=== PATIENT | male | born 1995 | race Caucasian/White ===

== ENCOUNTER 2019-10-31 11:43 | Emergency (ER) | payer OTHER, SELFPAY ==
--- NOTE | ~2019-10-31 | XR_ITS ---
XR chest 1V portable DATE: 10/31/2019 12:01 INDICATION: Chest pain TECHNIQUE: Portable upright AP chest on 10/31/2019 at 1156 hours COMPARISON: 08/26/2019 PA and lateral chest FINDINGS: Normal heart size. No hilar or mediastinal enlargement. No pulmonary infiltrate or consolid ation, pleural effusion or pulmonary vascular congestion or pneumothorax. IMPRESSION: No active cardiopulmonary disease Reviewed, dictated and finalized at location B.
[2019-10-31 11:40] VITALS: PULSE 90; RESP 16; O2SAT 98
--- NOTE | 2019-10-31 11:43 | ECG_ITS ---
Measurements Intervals [place] Rate: 81 P: 23 SC: 140 QRS: -22 QRSD: 90 T: 18 QT: 351 QTc: 408 Interpretive Statements SINUS RHYTHM INCOMPLETE RIGHT BUNDLE BRANCH BLOCK VOLTAGE CRITERIA FOR LVH BORDERLINE ECG Electronically Signed On 10-31-2019 11:49:48 CDT by Arun Watson D.O.
[2019-10-31 11:59] LABS: Basophils Absolute Auto 0.1 K/mm3 (0.0-0.1); Basophils Percent Auto 0.5 % (0.2-1.2); Eosinophils Percent Auto 0.4 % (0-4.4); Hematocrit 49.8 % (42.0-52.0); Hemoglobin 16.5 g/dL (14.0-18.0); Immature Granulocyte Absolute 0.03 K/mm3 (0.00-0.031); Immature Granulocyte Percent A 0.3 % (0-0.5); Lymphocytes Absolute Auto 0.96 K/mm3 (0.9-3.2); Lymphocytes Percent Auto 9.9 % (18.3-44.2); Mean Corpuscular HGB Conc 33.1 g/dl (32-36); Mean Corpuscular Hemoglobin 30.6 pg (26-34); Mean Corpuscular Volume 92.4 fl (80-100); Mean Platelet Volume 9.7 fl (7.4-10.4); Monocytes Absolute Auto 0.5 K/mm3 (0.1-0.6); Monocytes Percent Auto 5.2 % (2.6-8.5); Neutrophils Absolute Auto 8.1 K/mm3 (1.3-6.7); Neutrophils Percent Auto 83.7 % (45.5-73.1); Platelet Count Result 256 k/mm3 (150-375); Red Blood Count 5.39 M/mm3 (4.6-6.20); Red Cell Distribution Width 14.5 % (11.5-14.5); White Blood Count 9.7 K/mm3 (4.5-10.0)
[2019-10-31 12:09] LABS: Partial Thromboplastin Time 26.6 SECONDS (22.3-36.8); Prothrombin Time 13.2 Seconds (11.1-14.7)
[2019-10-31 12:11] LABS: Blood Urea Nitrogen 14 mg/dL (9-20); Calcium 9.4 mg/dL (8.4-10.2); Carbon Dioxide 21 mmol/L (22-30); Chloride 101 mmol/L (98-107); Estimated CRCL calculation 132 ml/min; Estimated Glomerular Filt Rate > 60; Glucose 97 mg/dL (75-110); Potassium 4.3 mmol/L (3.4-5.0); Sodium 137 mmol/L (137-145)
[2019-10-31 12:12] VITALS: BP 139/81; PULSE 80; RESP 13; TEMP 37.2; O2SAT 97
[2019-10-31 12:22] LABS: Troponin I < 0.012 ng/mL (0.000-0.034)
--- NOTE | 2019-10-31 12:37 | ED.WEAKNESS ---
HPI - Weakness General Chief complaint: Chest Pain Stated complaint: cp Time Seen by Provider: 10/31/19 12:19 Source: patient and RN notes reviewed Mode of arrival: EMS Limitations: no limitations History of Present Illness HPI Narrative: Pt is a 23 y/o male who presents to the ED via EMS with c/o generalized weakness starting yesterday. He notes that he has been under a lot of stress recently, stating that he has been living in a hotel for the past week due to family complications. Pt notes that he began feeling generally weak, and developed nausea and vomiting yesterday. He states that he hasn't been able to keep anything down since yesterday due to the vomiting. Pt notes that he woke up this morning with chest pain. According to the nurse, the pt also developed SOB this morning. The nurse states that the pt received ASA 324 mg and 1 mg of NTG while in route to the ED. Pt currently denies any fever, chills, or diarrhea. He notes that he hasn't had any recent contact with sick individuals, and states that he hasn't had any recent travel. MD Complaint: generalized weakness Onset (ago): day(s) (1) Location: generalized Associated symptoms: chest pain, nausea/vomiting and shortness of breath (per nurse) Related Data Allergies Allergy/AdvReac Type Severity Reaction Status Date / Time amoxicillin Allergy Unknown Verified 09/05/14 13:58 bee venom protein (honey bee) Allergy Unknown Verified 10/31/19 12:48 [bees] Penicillins Allergy Unknown Rash Verified 05/20/18 16:14 Review of Systems Review of Systems: All systems reviewed & are unremarkable except as noted in HPI and below Constitutional: Constitutional: Denies chills, Denies fever(s) and Reports weakness (generalized) Cardiovascular: Cardiovascular: Reports chest pain Respiratory: Respiratory: Reports dyspnea (per nurse) Gastrointestinal: Gastrointestinal: Denies diarrhea, Reports nausea and Reports vomiting PMFSH Past Medical History Medical History Fingers fractured Fracture, ribs Liver laceration Pelvic fracture Vertebral fracture Surgical History Surgical History S/P tube myringotomy Family History Family History (Updated 03/30/14 @ 07:13 by DOCTOR UNKNOWN) Father Family history of heart disease in male family member before age 55 Social History Social History Smoking status: Light tobacco smoker Second hand tobacco smoke exposure: Yes Alcohol intake: current Substance use: never Gender identity (if verbalized by the patient): Male Exam Narrative: Exam Narrative: General appearance: Well-developed, well-nourished Skin: Normal color Head: Normocephalic, nontraumatic Eyes: Clear conjunctiva ENT: Oropharynx normal, ears normal, nose normal Neck: Supple, nontender Chest and respiratory: Airway patent, no respiratory distress, no accessory muscle use Heart: Regular rate/rhythm Abdomen: Soft, nontender, no organomegaly, quiet bowel sounds Vascular: Normal peripheral pulses, normal capillary refill. Musculoskeletal: Normal range of motion, nontender back Neurologic: Alert and oriented ?3, INSPECTOR PLUG SEAM is normal as tested, no gross motor deficit Course Course Emergency Course: Improving Vital Signs Vital signs: Vital Signs Pulse Rate 90 10/31/19 11:40 Respiratory Rate 16 10/31/19 11:40 Pulse Oximetry 98 10/31/19 11:40 Temperature 37.2 C 10/31/19 12:12 Pulse Rate 80 10/31/19 12:12 Respiratory Rate 13 10/31/19 12:12 Blood Pressure 139/81 10/31/19 12:12 Pulse Oximetry 97 10/31/19 12:12
[2019-10-31] MEDS: SODIUM CHLORIDE 0.9% IV 1,000 ML 999 ML IV CONT (12:46)
[2019-10-31 13:32] VITALS: BP 134/90; PULSE 85; O2SAT 97
== END 2019-10-31 13:34 | disposition home or self-care (01) ==
PROVIDERS: Emergency Medicine; Emergency Provider Emergency Medicine
DX: R11.2 Nausea with vomiting, unspecified (principal)
CPT/HCPCS: 36415; 71045; 80048; 84484; 85025; 85610; 85730; 93005; 96361; 96374; 99284; J1200; J7030

== ENCOUNTER 2020-09-21 17:59 | Inpatient (IN) | payer OTHER, SELFPAY ==
[2020-09-21] VITALS (27 sets, daily range): BP systolic 103–151; BP diastolic 61–79; PULSE 94–133; RESP 10–36; TEMP 36.6; O2SAT 88–98
--- NOTE | ~2020-09-21 | XR_ITS ---
EXAMINATION: XR chest 1V portable EXAM DATE: 09/21/2020 19:10 INDICATION: Transient alteration of awareness. TECHNIQUE: Portable AP frontal chest x-ray was obtained. Comparison is made to prior examination from 10/31/2019. FINDINGS: Small right upper lobe granuloma. The lungs are otherwise clear. There are no pleural effu sions. The cardiomediastinal silhouette is within normal limits. There is no pneumothorax suspected . The bones and soft tissues are unremarkable. IMPRESSION: No acute cardiopulmonary findings. Reviewed, dictated and finalized at location A. OGRAPHIC RETOUCHER APPRENTICE
--- NOTE | 2020-09-21 18:10 | PC.NURSE ---
[place] poison control contacted. states seroquel immediate is not toxic until pt takes 1,000 mg. peak is 1.5 hours. if pt took extended release then 2,000 mg required for toxic dose and peak is 6 hours. pt may become drowsy, ataxic and have slurred speech. if pt took more than stated could see coma, delirium, prolonged QT. Ativan is suggested med since pt is agitated. will be following pt.
--- NOTE | 2020-09-21 18:11 | PC.NURSE ---
patient brought to this ED via EMS after intentional overdose with seroquel as reported by patient's mother. see initial notes. PD still in room. attempting to treat patient and get vitals. patient is disoriented and combative. handcuffs currently on with PD present.
--- NOTE | 2020-09-21 18:14 | ECG_ITS ---
Measurements Intervals [place] Rate: 100 P: 52 MO: 156 QRS: -32 QRSD: 106 T: 24 QT: 338 QTc: 437 Interpretive Statements SINUS TACHYCARDIA LEFT AXIS DEVIATION VOLTAGE CRITERIA FOR LVH MINIMAL Q WAVES- HIGH LATERAL LEADS BORDERLINE ECG Electronically Signed On 09-22-2020 7:58:04 [employer] POWERHOUSE by Arun Watson D.O.
--- NOTE | 2020-09-21 18:18 | ED.OVERDOSE ---
HPI - Overdose General Chief Complaint: Overdose Stated Complaint: overdose Time Seen by Provider: 09/21/20 18:05 Source: EMS Mode of arrival: EMS Limitations: clinical condition History of Present Illness HPI Narrative: Patient is 24 years old white male brought to the emergency room by ambulance. The EMT is telling me that patient's mother called them because patient had a bottle of Seroquel came out of the bathroom with empty bottle, told his mom that he flushed it in the toilet, mother did not hear any flushing sound. Patient came by ambulance, agitated, insisted to leave. Patient is telling me that he does not remember if he took any pills or not. If he took extra pills that means he would like to kill himself because he is tired of life. Related Data Allergies Allergy/AdvReac Type Severity Reaction Status Date / Time amoxicillin Allergy Unknown Verified 09/05/14 13:58 bee venom protein (honey bee) Allergy Unknown Verified 10/31/19 12:48 [bees] Penicillins Allergy Unknown Rash Verified 05/20/18 16:14 Review of Systems Review of Systems: Narrative: CONSTITUTIONAL: Denies fever, chills, or sweats. EYES: Denies visual changes, redness, or discharge. ENT: Denies rhinorrhea, congestion, sore throat, or otalgia. CARDIOVASCULAR: Denies chest pain, palpitations, or edema. RESPIRATORY: Denies cough or dyspnea. GASTROINTESTINAL: Denies abdominal pain, nausea, vomiting, or diarrhea. GENITOURINARY: Denies dysuria or hematuria. SKIN: Denies rash or itching. MUSCULOSKELETAL: Denies back pain, joint pain, or myalgia. NEUROLOGIC: Denies headache, numbness, or weakness. PSYCHIATRIC: Denies anxiety or depression. [facility] Past Medical History Medical History (Updated 09/21/20 @ 21:13 by Oralia Villa MD) Fingers fractured Fracture, ribs Liver laceration Pelvic fracture Vertebral fracture Surgical History Surgical History S/P tube myringotomy Family History Family History Father Family history of heart disease in male family member before age 55 Social History Social History Smoking status: Light tobacco smoker Second hand tobacco smoke exposure: Yes Alcohol intake: current Substance use: never Gender identity (if verbalized by the patient): Male Exam Narrative: Exam Narrative: General appearance: Well-developed, well-nourished, agitated, combative Skin: Normal color Head: Normocephalic, nontraumatic Eyes: Clear conjunctiva ENT: Oropharynx normal, ears normal, nose normal Neck: Supple, nontender Chest and respiratory: Airway patent, no respiratory distress, no accessory muscle use Heart: Regular rate/rhythm Abdomen: Soft, nontender, no organomegaly, quiet bowel sounds Vascular: Normal peripheral pulses, normal capillary refill. Musculoskeletal: Normal range of motion, nontender back Neurologic: Alert and oriented ?3, BULB PLANTER is normal as tested, no gross motor deficit Course Course Emergency Course: Improving Reevaluation(s) Reevaluation #1: Currently patient feeling much better, patient is awake, alert and oriented x4, telling me that he does not remember exactly what happened, does not remember if he took overdose or not but he remembered that he had alcohol on board today Date: 09/21/20 Time: 21:16 MDM - Overdose MDM Narrative Medical decision making narrative: Intentional drug overdose, alcohol intoxication are my concern. Poison control contacted, IV fluid normal saline x2 L, labs, urine drug screen, EKG, chest x-ray, alcohol level ordered. Further plan to follow D
--- NOTE | 2020-09-21 18:30 | PC.NURSE ---
PD no longer present. handcuffs removed prior to their departure. patient continued to escalate his behavior. this RN and global technical writer in room when patient removed all monitors and jumped off stretcher. patient did leave his room walking towards exit. all staff and provider aware. security present. patient pulled out his IV and threw on floor. bleeding from left hand. patient seen leaving ED exit but then quickly returning. patient's mother has been present in room.
--- NOTE | 2020-09-21 18:33 | PCRCNOTE ---
PT. COMBATIVE, TRIED LEAVING AMA. PT. CURRENTLY IN 4 POINT HARD RESTRAINTS. ABG UNABLE TO BE DRAWN AT THIS TIME. DR. KATIA TOLLIVER.
[2020-09-21] MEDS: LORazepam INJ (*CRX) 2 MG/ML VIAL IV PUSH (18:40)
[2020-09-21] MEDS: SODIUM CHLORIDE 0.9% IV 1,000 ML 999 ML IV CONT ×2 (18:52→21:40)
[2020-09-21 18:55] LABS: Basophils Percent Auto 0.2 % (0.2-1.2); Eosinophils Absolute Auto 0.1 K/mm3 (0-0.3); Eosinophils Percent Auto 1.4 % (0-4.4); Hematocrit 45.4 % (42.0-52.0); Hemoglobin 15.3 g/dL (14.0-18.0); Immature Granulocyte Absolute 0.03 K/mm3 (0.00-0.031); Immature Granulocyte Percent A 0.3 % (0-0.5); Lymphocytes Absolute Auto 2.03 K/mm3 (0.9-3.2); Lymphocytes Percent Auto 23.5 % (18.3-44.2); Mean Corpuscular HGB Conc 33.7 g/dl (32-36); Mean Corpuscular Hemoglobin 30.7 pg (26-34); Mean Corpuscular Volume 91.2 fl (80-100); Mean Platelet Volume 10.1 fl (7.4-10.4); Monocytes Absolute Auto 0.3 K/mm3 (0.1-0.6); Monocytes Percent Auto 3.4 % (2.6-8.5); Neutrophils Absolute Auto 6.2 K/mm3 (1.3-6.7); Neutrophils Percent Auto 71.2 % (45.5-73.1); Platelet Count Result 195 k/mm3 (150-375); Red Blood Count 4.98 M/mm3 (4.6-6.20); White Blood Count 8.6 K/mm3 (4.5-10.0)
--- NOTE | 2020-09-21 19:00 | PC.NURSE ---
security and ED staff in room. patient restrained to bed. locked restraints applied. IV ativan given. patient's mother present. patient alert and yelling during entire incident. on monitor with RA sat >96%. SL inserted in right hand. new SL in left AC. mother gave patient's medical history and allergies. patient's cell phone and wallet given to his mother. patient's shirt and sweatshirt were cut off.
[2020-09-21 19:06] LABS: INR 1.1; Prothrombin Time 14.3 Seconds (11.1-14.7)
[2020-09-21 19:07] LABS: Partial Thromboplastin Time 31.2 SECONDS (22.3-36.8)
--- NOTE | 2020-09-21 19:15 | PC.NURSE ---
despite restraints patient was able to hit his head against the head of staffing program manager Porsha. charge master specialist and supervisor inspection department's aware. patient's mother aware. restraints still in place. medication given. patient's mother updated on policy and plan of treatment at this time with patient's behaviors and risk to himself and others. mother has also to verbally reassure and comfort patient.
[2020-09-21 19:17] LABS: Alanine Aminotransferase 51 U/L (4-50); Albumin Level 4.7 g/dL (3.5-5.1); Alkaline Phosphatase 69 U/L (38-126); Anion Gap 15 mmol/L (8-16); Aspartate Amino Transferase 53 U/L (17-59); Bilirubin,Total 0.5 mg/dL (0.2-1.3); Blood Urea Nitrogen 13 mg/dL (9-20); Calcium 9.5 mg/dL (8.4-10.2); Carbon Dioxide 25 mmol/L (22-30); Chloride 106 mmol/L (98-107); Creatine Kinase 112 U/L (55-170); Estimated CRCL calculation 110 ml/min; Estimated Glomerular Filt Rate > 60; Glucose 103 mg/dL (75-110); Magnesium 1.8 mg/dL (1.6-2.3); Phosphorus 2.2 mg/dL (2.5-4.5); Potassium 3.5 mmol/L (3.4-5.0); Sodium 146 mmol/L (137-145)
--- NOTE | 2020-09-21 19:45 | PC.NURSE ---
resting on stretcher. restraints still in place. patient appears comfortable. appears to be sleeping at times. mother in room. patient on academic director. removes monitor at times. removes pulse oximeter at times. no distress noted. mother aware of all treatment plans.
[2020-09-21 19:57] LABS: Ethanol 330 mg/dL (<10)
[2020-09-21 19:58] LABS: Acetaminophen < 10 ug/mL (10-30)
--- NOTE | 2020-09-21 20:15 | PC.NURSE ---
received call from Poison Control center. update given. aware of plan to admit patient to this ICU. will continue to monitor patient.
[2020-09-21 20:27] LABS: Add Urine Microscopic? NO; Appearance Urine Clear (Clear); Bilirubin Urine Negative (Negative); Blood Urine Negative (Negative); Color Urine Colorless (Yellow); Glucose Urine UA Negative (Negative); Ketones Urine Negative (Negative); Leukocyte Esterase Ur Negative LEU/UL (Negative); Nitrate Urine Negative (Negative); Protein Urine Negative (Negative); Specific Grav Ur 1.008 (1.001-1.035); Urobilinogen Urine Negative mg/dL (<2.0)
[2020-09-21 20:44] LABS: Amphetamine Screen Urine Negative (Negative); Barbiturate Screen Urine Negative (Negative); Benzodiazepines Screen Urine Negative (Negative); Cannabinoid Screen Urine Negative (Negative); Cocaine Screen Urine Negative (Negative); Methadone Screen Urine Negative (Negative); Opiate Screen Urine Negative (Negative); Phencyclidine Screen Urine Negative (Negative)
[2020-09-21 21:12] LABS: Salicylate < 1.0 mg/dL (2-20)
--- NOTE | 2020-09-21 21:44 | PC.NURSE ---
Father - Kan Cannon [phone] would like to be notified whenever Crisis will be available. He would like to speak to them as well.
--- NOTE | 2020-09-21 22:15 | PC.NURSE ---
patient sitting on stretcher. wants his mother to find his wallet and phone. mother states she has both in her purse. patient's father also called in. mother and patient aware. both parents state that patient needs to be evaluated by crisis and psych and transferred for inpatient treatment due to continued depression, SI and ETOH abuse.
--- NOTE | 2020-09-21 22:36 | PC.NURSE ---
2nd update given to poison control.
--- NOTE | 2020-09-21 22:45 | PC.NURSE ---
IVF done. disconnected. lunch box given. patient sitting up on stretcher. removed BP cuff and pulse Ox repeatedly. has monitor on. sprite given. has call light in reach. patient has been updated several times on plan of treatment and expected transfer.
--- NOTE | 2020-09-21 23:20 | PC.NURSE ---
report given to Jac RN. patient done eating. patient updated on plan of care by Jac. patient advised of policy regarding clothing and belongings after overdose.
[2020-09-22] VITALS (8 sets, daily range): BP systolic 93–137; BP diastolic 49–82; PULSE 60–94; RESP 13–18; TEMP 35.4–36.9; O2SAT 93–99; BMI 30.4
--- NOTE | 2020-09-22 00:50 | ADMGEN ---
This patient, Raj Cannon, was admitted to Intensive Care Unit-1 at 0015. Patient/family oriented to hospital policies and general routines including ID bracelet, bed and alarms, visiting hours, pain management, procedures, bathroom and other care routines, personal items, smoking policy, room service/diet, and visiting hours. Information on how to activate the Rapid Response Team has been discussed. Patient/Family are encouraged to report perceived risks to care and to ask questions if they do not understand what they are told or what they should do.
[2020-09-22] MEDS: SODIUM CHLORIDE 0.9% IV 1,000 ML 125 ML IV CONT ×2 (01:59→09:02)
--- NOTE | 2020-09-22 03:39 | PM.IMHP ---
H&P: HPI History of Present Illness Date/Time: 09/22/20 04:39 Chief Complaint: Suicide attempt Narrative: Raj Cannon is a 24 year old male with a past medical history of alcohol abuse, heroin abuse, bipolar disorder and depression who presented to the ER after intentional overdose. The patient reports that he has been more depressed over the last several weeks. He does have a history of bipolar disorder with depression but denies ever having been hospitalized for suicidal ideation. He reports that he does wanted everything to end. He does not know exactly why he took the medications but was looking for relief from his depression. He states that he no longer wants to hurt himself now. He took approximately 20 tablets of 25 mg Seroquel. He also has Suboxone but denies taking any extra Suboxone. He denies any almost tidal ideation. He reports that he drinks at least a pint of hard liquor a day. He may have drink extra liquor yesterday. He has had prior episodes of alcohol withdrawal. He reports feeling moderately anxious currently. He is not having any shakes. He denies any headaches, hallucinations, or increased irritability. He reports that he has not abused heroin in the last couple of years. Review of Systems Review of Systems: Narrative: 12 systems were reviewed with pertinent positives and negatives per HPI. Except as documented in the HPI, all other systems were reviewed and are negative. [facility] Past Medical History Medical History (Updated 09/22/20 @ 07:57 by Winnie Velasquez DO) Bipolar disorder with depression Fingers fractured Fracture, ribs Liver laceration Pelvic fracture Vertebral fracture Surgical History Surgical History S/P tube myringotomy Family History Family History Father Family history of heart disease in male family member before age 55 Social History Social History (Updated 09/22/20 @ 07:55 by Winnie Velasquez DO) Social History: He currently lives with his mother in [place]. He is employed as a cook. He has a history of hair when a abuse but has not used heroin in a couple of years. He drinks at least a pint of alcohol a day. He denies any tobacco use. Primary care physician: Dr. Shaquille Myrick Smoking status: Never smoker Second hand tobacco smoke exposure: Yes Alcohol intake: current Alcohol use details: He drinks at least a pint of alcohol a day. Substance use: former Substance use type: heroin Gender identity (if verbalized by the patient): Male Spiritual care concerns: No Meds Home Medications and Allergies Home Medications Medication Instructions Recorded Confirmed Type buprenorphine-naloxone 1 film BID 09/22/20 09/22/20 History quetiapine 25 mg BID 09/22/20 09/22/20 History Allergies Allergy/AdvReac Type Severity Reaction Status Date / Time amoxicillin Allergy Unknown Unknown Verified 09/21/20 22:36 bee venom protein (honey bee) Allergy Unknown Hives Verified 09/21/20 22:36 [bees] Penicillins Allergy Unknown Rash Verified 09/21/20 22:36 Vital Signs Vital Signs - 24 hr 09/21/20 18:09 09/21/20 18:15 09/21/20 18:25 Temperature 97.9 F Pulse Rate 102 H 101 H 120 H Respiratory Rate 14 17 36 H Blood Pressure 151/76 H Pulse Oximetry 98 96 09/21/20 18:30 09/21/20 18:34 09/21/20 18:45 Temperature Pulse Rate 118 H 132 H Respiratory Rate 22 H 17 18 Blood Pressure Pulse Oximetry 92 96 09/21/20 18:46 09/21/20 19:00 09/21/20 19:15 Temperature Pulse Rate 125 H 124 H 117 H Respiratory Rate 14 25 H 31 H Blood Pressure 151/76 H Pulse Oximetry 96 98 88 L 09/21/20 19:17 09/21/20 19:30 09/21/20 19:31 Temperature Pulse Rate 120 H 109 H Respiratory Rate 19 10 L Blood Pressure 117/61 111/73 Pulse Oximetry 94 98 95 09/21/20 19:45 09/21/20 19:46 09/21/20 20:20 Temperature
--- NOTE | 2020-09-22 05:50 | ECG_ITS ---
Measurements Intervals [place] Rate: 69 P: -7 NV: 160 QRS: -16 QRSD: 94 T: -2 QT: 389 QTc: 417 Interpretive Statements SINUS RHYTHM BORDERLINE ST-T WAVE ABNORMALITY- INFERIOR LEADS BORDERLINE ECG Electronically Signed On 09-22-2020 8:59:18 CHECK TOTALER by Arun Watson D.O.
[2020-09-22 06:54] LABS: Hematocrit 38.8 % (42.0-52.0); Hemoglobin 12.7 g/dL (14.0-18.0); Mean Corpuscular HGB Conc 32.7 g/dl (32-36); Mean Corpuscular Hemoglobin 30.2 pg (26-34); Mean Corpuscular Volume 92.2 fl (80-100); Platelet Count Result 179 k/mm3 (150-375); Red Blood Count 4.21 M/mm3 (4.6-6.20); Red Cell Distribution Width 14.2 % (11.5-14.5); White Blood Count 6.7 K/mm3 (4.5-10.0)
[2020-09-22 07:07] LABS: Ethanol 27 mg/dL (<10)
[2020-09-22 07:08] LABS: Alanine Aminotransferase 41 U/L (4-50); Albumin Level 3.6 g/dL (3.5-5.1); Alkaline Phosphatase 48 U/L (38-126); Anion Gap 6 mmol/L (8-16); Aspartate Amino Transferase 43 U/L (17-59); Bilirubin,Total 0.4 mg/dL (0.2-1.3); Blood Urea Nitrogen 12 mg/dL (9-20); Calcium 8.1 mg/dL (8.4-10.2); Carbon Dioxide 27 mmol/L (22-30); Chloride 107 mmol/L (98-107); Estimated CRCL calculation 136 ml/min; Estimated Glomerular Filt Rate > 60; Glucose 82 mg/dL (75-110); Potassium 3.8 mmol/L (3.4-5.0); Sodium 140 mmol/L (137-145)
[2020-09-22] MEDS: FOLIC ACID 1 MG TABLET PO (09:44)
[2020-09-22] MEDS: THIAMINE HCL 100 MG TABLET PO (09:45)
[2020-09-22] MEDS: MULTIVITAMINS THERAPEUTIC TAB (*BKC) 1 TABLET PO (09:45)
--- NOTE | 2020-09-22 09:57 | PC.NURSE ---
Received call from [place] [facility], Talked to Arian, after given her all the information she requested, pt released from poison control at this time
--- NOTE | 2020-09-22 12:02 | WPDCNINT ---
Assessment and Plan Assessment and plan (1) Alcohol intoxication: Qualifiers: Complication of substance-induced condition: uncomplicated Qualified Code(s): F10.920 - Alcohol use, unspecified with intoxication, uncomplicated Code(s): F10.929 - Alcohol use, unspecified with intoxication, unspecified Status: Acute (2) Drug overdose: Qualifiers: Encounter type: initial encounter Injury intent: intentional self-harm Qualified Code(s): T50.902A - Poisoning by unspecified drugs, medicaments and biological substances, intentional self-harm, initial encounter Code(s): T50.901A - Poisoning by unspecified drugs, medicaments and biological substances, accidental (unintentional), initial encounter Status: Acute Assessment and Plan: Seems to be doing well and does not appear to have taking large doses of Seroquel if any just based on his clinical parameters. Nonetheless the patient is stable and can be downgraded or transfer to a medical fontenot But will continue to need a sitter until cleared by Psychiatry. IV fluids can be discontinued. Additional Plan Code status: Full code Critical care time spent:32 minutes Due to a high probability of clinically significant, life threatening deterioration, the patient required my highest level of preparedness to intervene emergently and I personally spent this critical care time directly and personally managing the patient. This critical care time included obtaining a history; examining the patient; pulse oximetry; ordering and review of studies; arranging urgent treatment with development of a management plan; evaluation of patient's response to treatment; frequent reassessment; and discussions with other providers. It was exclusive of separately billable procedures and treating other patients and teaching time. Please see Assessment and Plan section and the rest of the note for further information on patient assessment and treatment Vice President Talent Management Consult Note Consult date: 09/22/20 Time Seen: 08:00 HPI: Raj Cannon is a 24 year old male with a history of depression and alcohol abuse who presents after his mother suspected drug overdose with Seroquel. He has been on Seroquel for some time and apparently he was locked in the bathroom and when he came out his Seroquel bottle was empty. He does not remember what happened and neither denies nor admits to taking many Seroquel tablets. He denies suicidal ideation denies being depressed he admits that he was drunk and says that he drinks heavy frequently. He was admitted yesterday for precaution to the intensive care unit but has been stable overnight with normal vital signs and normal chemistries and lab work QTC has been normal on two EKGs. Review of Systems Review of Systems: All systems reviewed & are unremarkable except as noted in HPI and below PMFSH Past Medical History Medical History (Updated 09/22/20 @ 07:57 by Winnie Velasquez DO) Bipolar disorder with depression Fingers fractured Fracture, ribs Liver laceration Pelvic fracture Vertebral fracture Surgical History Surgical History S/P tube myringotomy Family History Family History Father Family history of heart disease in male family member before age 55 Social History Social History (Updated 09/22/20 @ 07:55 by Winnie Velasquez DO) Social History: He currently lives with his mother in [place]. He is employed as a cook. He has a history of hair when a abuse but has not used heroin in a couple of years. He drinks at least a pint of alcohol a day. He denies any tobacco use. Primary care physician: Dr. Shqauille Myrick Smoking status: Never smoker Second hand tobacco smoke exposure: Yes Alcohol intake: current Alcohol use details: He drinks at least a pint of alcohol a day. Substance use: former
--- NOTE | 2020-09-22 12:26 | PM.DS ---
DS: Admitting Diagnosis Admitting Diagnosis Admitting Diagnosis: (1) Drug overdose: (2) Suicide attempt by multiple drug overdose: (3) Alcohol intoxication: DS: Discharge Diagnosis Discharge Diagnosis (1) Alcohol intoxication: Qualifiers: Complication of substance-induced condition: uncomplicated Qualified Code(s): F10.920 - Alcohol use, unspecified with intoxication, uncomplicated Code(s): F10.929 - Alcohol use, unspecified with intoxication, unspecified Status: Acute Assessment and Plan: Resolved (2) Drug overdose: Qualifiers: Encounter type: initial encounter Injury intent: intentional self-harm Qualified Code(s): T50.902A - Poisoning by unspecified drugs, medicaments and biological substances, intentional self-harm, initial encounter Code(s): T50.901A - Poisoning by unspecified drugs, medicaments and biological substances, accidental (unintentional), initial encounter Status: Acute Assessment and Plan: Resolved (3) Suicide attempt by multiple drug overdose: Qualifiers: Encounter type: initial encounter Qualified Code(s): T50.912A - Poisoning by multiple unspecified drugs, medicaments and biological substances, intentional self-harm, initial encounter Code(s): T50.912A - Poisoning by multiple unspecified drugs, medicaments and biological substances, intentional self-harm, initial encounter Status: Acute Assessment and Plan: Made contract with Psych and was discharged home. Will follow up in the outpatient setting. DS: Summary Hospital Course Reason for hospitalization: OD Hospital Course: Raj Cannon is a 24 year old male with a past medical history of alcohol abuse, heroin abuse, bipolar disorder and depression who presented to the ER after intentional overdose. The patient reports that he has been more depressed over the last several weeks. He does have a history of bipolar disorder with depression but denies ever having been hospitalized for suicidal ideation. He reports that he does wanted everything to end. He does not know exactly why he took the medications but was looking for relief from his depression. He states that he no longer wants to hurt himself now. He took approximately 20 tablets of 25 mg Seroquel. He also has Suboxone but denies taking any extra Suboxone. He denies any almost tidal ideation. He reports that he drinks at least a pint of hard liquor a day. He may have drink extra liquor yesterday. He has had prior episodes of alcohol withdrawal. He reports feeling moderately anxious currently. He is not having any shakes. He denies any headaches, hallucinations, or increased irritability. He reports that he has not abused heroin in the last couple of years. Patient was admitted to ICU and in the morning was medically cleared for Psych eval. Patient was discharged home with follow up in the outpatient setting. Time Spent with Patient Time attestation: Total time spent providing and/or coordinating discharge services: Exam Narrative: Exam Narrative: Lying in bed Const: General: healthy appearing, comfortable, no acute distress, alert, awake and Physically active Nutritional Appearance: well nourished Orientation/consciousness: patient oriented x3 HENMT: Head: normal to inspection and normocephalic Ears: hearing grossly normal bilaterally General nose exam: Normal external nose present Face and sinus: normal facial exam Eyes: General: appearance normal, both eyes and all related structures Pupils: Equal, round and reactive pupils present EOM: EOMs intact bilaterally Neck: Neck: no lymphadenopathy, supple and no JVD Resp: Effort & Inspection: normal respiratory effort and able to speak in complete sentences Auscultation: clear to auscultation bilaterally Cardio: Jugular venous distension: no JVD Rate: regular rate Rhythm: regular rhythm GI: GI Palp: Yes Soft to palpatio
== END 2020-09-22 13:30 | disposition home or self-care (01) | DRG 817 ==
LOC: ANHED 21:13 → ANHICU 09-22 10:53
PROVIDERS: Admitting Provider Internal Medicine; Emergency Provider Emergency Medicine; PCP Internal Medicine; Visit Provider Internal Medicine
DX: T43.592A Poisoning by other antipsychotics and neuroleptics, intentional self-harm, initial encounter (principal); F10.129 Alcohol abuse with intoxication, unspecified; F17.210 Nicotine dependence, cigarettes, uncomplicated; F31.9 Bipolar disorder, unspecified
CPT/HCPCS: 36415; 71045; 80053; 80307; 81003; 82550; 83735; 83930; 84100; 85025; 85027; 85610; 85730; 93005; 96361; 96374; 99285; A9270; J1200; J1630; J2060; J7030

== ENCOUNTER 2025-05-15 14:49 | Emergency (ER) | payer OTHER, SELFPAY ==
--- NOTE | 2025-05-15 14:55 | ED.MALEGU ---
HPI - Male Genitourinary General Chief complaint: Urogenital-Male Stated complaint: Male Problems/Bumps Time Seen by Provider: 05/15/25 14:55 Source: patient Mode of arrival: ambulatory Limitations: no limitations History of Present Illness HPI Narrative: Patient is a 29-year-old male who presents with tenderness, redness and swelling near left groin. Patient states over the last few days area has grown in size and pain. Patient reports he has had ingrown as before but nothing like this. Related Data Home Medications ?Medication ?Instructions ?Recorded ?Confirmed ?Last Taken ?Type buprenorphine HCl 8 mg sublingual mg sublingual 05/15/25 Unknown History tablet testosterone cypionate 200 mg/mL mg 05/15/25 Unknown History intramuscular oil Allergies Allergy/AdvReac Type Severity Reaction Status Date / Time amoxicillin Allergy Unknown Unknown Verified 05/15/25 14:55 bee venom protein (honey Allergy Unknown Hives Verified 05/15/25 14:55 bee) (bees) Penicillins Allergy Unknown Rash Verified 05/15/25 14:55 Review of Systems Review of Systems: All systems reviewed & are unremarkable except as noted in HPI and below Constitutional: Constitutional: Denies chills, Denies fever(s), Denies headache(s), Denies malaise and Denies weakness Eyes: Eyes: Denies change in vision, Denies eye discharge and Denies irritation ENT: Denies otalgia, Denies headache(s), Denies nasal congestion, Denies nasal discharge, Denies sinus pain and Denies sore throat Cardiovascular: Cardiovascular: Denies chest pain, Denies edema, Denies palpitations and Denies dyspnea Respiratory: Respiratory: Denies cough and Denies dyspnea Gastrointestinal: Gastrointestinal: Denies abdominal pain, Denies diarrhea, Denies nausea and Denies vomiting Genitourinary: Genitourinary: Denies hematuria, Denies dysuria, Denies flank pain, Denies nocturia and Denies urinary urgency Musculoskeletal: Musculoskeletal: Denies back pain and Denies numbness Integumentary/Breasts: Skin/Breast: Denies pruritus, Reports erythema, Denies rash, Reports skin pain and Reports skin swelling Neurologic: Denies headache(s), Denies numbness and Denies weakness Psychiatric: Psychiatric: Reports no additional psychiatric complaints Endocrine: Endocrine: Denies palpitations PMFSH Past Medical History Medical History Bipolar disorder with depression Fracture, ribs Fingers fractured Pelvic fracture Liver laceration Vertebral fracture Surgical History Surgical History S/P tube myringotomy Family History Family History Father Family history of heart disease in male family member before age 55 Social History Social History Social History: He currently lives with his mother in [place]. He is employed as a cook. He has a history of hair when a abuse but has not used heroin in a couple of years. He drinks at least a pint of alcohol a day. He denies any tobacco use. Primary care physician: Dr. Shaquille Myrick Smoking status: Never smoker Second hand tobacco smoke exposure: Yes Alcohol intake: current Alcohol use details: He drinks at least a pint of alcohol a day. Substance use: former Substance use type: heroin Gender identity (if verbalized by the patient): Male Spiritual care concerns: No Comments At time of signature, agree with nursing past medical, surgical, social and family history. There is no relevant family history pertinent to the presenting complaint. Exam Const: General: cooperative, healthy appearing, comfortable, no acute distress and well nourished Nutritional Appearance: well nourished Orientation/consciousness: patient oriented x3 HENMT: Head: normocephalic and atraumatic Ears: external ears normal Face/Nose/Sinus: Normal external nose present, Normal nares present and normal facial exam Face and sinus: normal facial exam Eyes: General: appearance normal, both eyes and all related structures Pupils: Equal, round and reactive pupils present EOM: EOMs intact bilaterally Neck: Neck: normal visual inspection, full ROM and supple Chest: Chest palpation & inspection: normal inspection of the chest Resp: Effort & Inspection: normal respiratory effort and able to speak in complete sentences Cardio: Rate: regular rate Rhythm: regular rhythm GI: Inspection: normal to inspection GI Palp: No abdominal tenderness and Yes Soft to palpation : General: Yes no CVA tenderness Male General Exam: Yes normal external exam and No inguinal lymphadenopathy Penis: Yes normal penis and Yes circumcised Meatus: meatus normal Scrotum: scrotum normal Testes: Testes normal Male genitals images:  1. 1 cm area of erythema, tenderness. marble sized nodule present on palpation. Back/Spine/Pelvis: Back: no CVA tenderness Skin: General skin exam: normal color and no rashes or lesions noted Neuro: General: patient oriented x3 and moves all extremities Cranial nerves: Yes Equal, round and reactive pupils present Extrem: General: normal to inspection and full ROM Psych: Appearance: grossly normal and well kempt Course Course Emergency Course: Patient is aware of diagnosis, understands and agrees to treatment plan. Anticipatory guidance given. Patient agrees to follow-up as directed and is aware of reasons to seek care at the emergency department. Portions of this record may have been created with voice recognition software Level of Care: Express Care Visit Vital Signs Vital signs: Reviewed MDM - Male Genitourinary MDM Narrative Medical decision making narrative: Discussed the next steps if infection consents were to worsen. Patient and to the ER if he has any redness, fever, chills or the size of nodule continues to grow. Patient states if symptoms worsen at all he will go to the emergency department Pt well hydrated appearing, in no respiratory distress, hemodynamically stable. Recommend supportive care. The patient is stable at time of discharge the clinical impression was discussed and the patient was given the opportunity to ask questions, which were addressed as completely as possible given the information available at present. Anticipatory guidance and return to care precautions were discussed and the importance of primary care follow-up was stressed and encouraged. The patient voiced understanding of the plan, indications to return, and the need for follow-up. Exam findings show no acute concerns or changes Patient is appropriate for outpatient treatment and follow-up. Differential Diagnosis Differential diagnosis: Likely inguinal hernia and other (Abscess, cellulitis) Medical Records Attestation: I reviewed the patient's medical records. Discharge Plan Discharge Clinical Impression: Cellulitis and abscess of other specified site Patient Disposition: Home Condition: Stable Instructions: Abscess (ED) Additional Instructions: Please follow up with your Primary Care Doctor within 48-72 hours - call for an appointment. apply moist heat 3-4 times daily for 10-15 minutes. Clean with soap and water only; Avoid using alcohol and peroxide. Please take Antibiotics as directed. For pain, you may take: Tylenol 650-1000mg by mouth every 4-6 hours. Do not exceed 4000mg in 24 hours. Advil (Ibuprofen) 600 mg by mouth every 6 hours. Do not exceed 2400mg in 24 hours. 8 AM: Tylenol 11 AM: Ibuprofen 2 PM: Tylenol 5 PM: Ibuprofen 8 PM: Tylenol 11 PM: Ibuprofen 2 AM: Tylenol 5 AM: Ibuprofen If you experience any worsening redness, swelling, streaking (red lines), fever or chills please go to the ER Patient Language: [place] Prescriptions: New clindamycin HCl 300 mg capsule 300 mg PO Q8H 10 Days Qty: 30 0RF sulfamethoxazole-trimethoprim 800-160 mg tablet 1 tablet PO Q12H 10 Days Qty: 20 0RF No Action testosterone cypionate 200 mg/mL oil buprenorphine HCl 8 mg tablet, sublingual SUBLINGUAL Follow-up/Referrals: Shaquille Myrick MD [Primary Care Provider, Hospitalist] - 3 Days Time of Disposition: 15:57
[2025-05-15 15:02] VITALS: BP 135/66; PULSE 80; RESP 18; TEMP 37.4; O2SAT 100
== END 2025-05-15 16:06 | disposition home or self-care (01) ==
PROVIDERS: Emergency Provider Nurse Practitioner Family; PCP Internal Medicine
DX: L03.314 Cellulitis of groin (principal); L02.214 Cutaneous abscess of groin
CPT/HCPCS: 99213; G0463